=== PATIENT | female | born 2000 | race African-American/Black ===

== ENCOUNTER 2025-04-06 14:42 | Emergency (ER) | payer SELFPAY ==
[2025-04-06 15:12] VITALS: BP 126/89; PULSE 71; RESP 18; TEMP 36.8; O2SAT 99; BMI 67.6
--- NOTE | 2025-04-06 15:19 | EKG_ITS ---
[address] [address] [address], [place] [address] Test Date: 2025-04-06 Pat Name: Alcides Curry Department: Room: Gender: Female [employer] T[employer]: NIKOLE : 2000 Requested By: Order Number: [id number] Reading MD: Luis Antonio Flores MD Measurements Intervals [place] Rate: 64 P: 35 UT: 176 QRS: 42 QRSD: 88 T: 14 QT: 382 QTc: 394 Interpretive Statements Normal sinus rhythm with sinus arrhythmia Electronically Signed On 04-07-2025 7:37:39 PDT by Luis Antonio Flores MD
--- NOTE | 2025-04-06 15:19 | DI.RAD.S_ITS ---
PROCEDURE: XR CHEST 1V INDICATIONS: Chest Pain TECHNIQUE: One view of the chest was acquired. COMPARISON: None. FINDINGS: Surgical changes and devices: None. Lungs and pleura: Lungs are clear. No pleural effusions or pneumothorax. Mediastinum: Mediastinal contours appear normal. Heart size is normal. Bones and chest wall: No suspicious bony lesions. Overlying soft tissues appear unremarkable. IMPRESSION: No acute cardiopulmonary abnormality is seen. Dictated by: Farhad Bautista M.D. on 04/06/2025 at 15:59 Approved by: Farhad Bautista M.D. on 04/06/2025 at 15:59
[2025-04-06 15:56] VITALS: BP 122/87; PULSE 76; O2SAT 100
[2025-04-06 16:00] VITALS: BP 114/77; PULSE 71; O2SAT 99
[2025-04-06 16:00] LABS: INR 0.9 (0.9-1.3); Prothrombin Time 10.5 SECONDS (9.4-12.5)
[2025-04-06 16:02] LABS: PTT Partial Thromboplastin Tim 28 SECONDS (25.1-36.5)
[2025-04-06 16:04] LABS: Alanine Aminotransferase 21 IU/L (<35); Albumin 4.8 g/dL (3.5-5.0); Albumin Globulin Ratio 1.5 (1.0-2.8); Alkaline Phosphatase 62 U/L (38-126); Blood Urea Nitrogen 8 mg/dL (7-17); Calcium 9.6 mg/dL (8.4-10.2); Carbon Dioxide 22 mmol/L (22-32); Chloride 103 mmol/L (98-107); Creatine Kinase 89 U/L (30-135); Estimated Glomerular Filt Rate > 60 mL/min (>60); Globulin 3.2 g/dL (1.7-4.1); Glucose 85 mg/dL (70-99); HEMOLYSIS 16 (0-50); Lipase 38 U/L (23-300); Magnesium 1.8 mg/dL (1.6-2.3); Potassium 3.9 mmol/L (3.4-5.1); Sodium 135 mmol/L (137-145); Total Protein 8.0 g/dL (6.3-8.2)
[2025-04-06 16:16] LABS: NT-proBNP (BNP-Adult 18+) < 20 pg/mL (<125); Troponin I < 0.012 ng/mL (0.01-0.034)
[2025-04-06 16:30] VITALS: PULSE 68; O2SAT 99
[2025-04-06 16:44] LABS: Add Manual Diff / Slide Review NO; Hematocrit 39.8 % (36-46); Hemoglobin 13.9 g/dL (12.0-16.0); Lymphocytes Absolute Auto 2000 /uL (1100-4500); Mean Corpuscular HGB Conc 35.0 % (30-36); Mean Corpuscular Hemoglobin 27.8 PG (26-34); Mean Corpuscular Volume 79.5 fL (80-100); Platelet Count 305 X10^3/uL (150-400)
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
[2025-04-06 17:00] VITALS: PULSE 76; O2SAT 99
[2025-04-06] MEDS: ACETAMINOPHEN 325 MG TABLET 975 MG PO (17:20)
[2025-04-06] MEDS: IBUPROFEN 400 MG TABLET PO (17:20)
[2025-04-06 17:30] VITALS: PULSE 76; O2SAT 100
[2025-04-06 18:04] LABS: COVID-19 CEPHEID 4-PLEX PCR Negative (Negative); Influenza A - CEPHEID Flu A NEGATIVE (NEGATIVE); Influenza B - CEPHEID Flu B NEGATIVE (NEGATIVE)
== END 2025-04-06 17:45 | disposition home or self-care (01) ==
PROVIDERS: Emergency Medicine; Emergency Provider Physician Assistant
DX: Z77.120 Contact with and (suspected) exposure to mold (toxic) (principal); J06.9 Acute upper respiratory infection, unspecified; R05.9 Cough, unspecified; R06.02 Shortness of breath; R07.9 Chest pain, unspecified
CPT/HCPCS: 36415; 71045; 80053; 82550; 83690; 83735; 83880; 84484; 85025; 85610; 85730; 87637; 93005; 93010; 99283; 99284